=== PATIENT | female | born 1990 | race Caucasian/White ===

== ENCOUNTER 2025-06-11 09:50 | Outpatient (REF) | payer BC, SELFPAY ==
[2025-06-11 14:34] LABS: Hematocrit 37.3 % (37.0-47.0); Hemoglobin 11.9 g/dl (12.0-16.0); Mean Corpuscular HGB Conc 31.9 g/dl (31.0-35.0); Mean Corpuscular Hemoglobin 29.5 pg (27.0-33.0); Mean Corpuscular Volume 92.6 fL (80.0-98.0); NRBC Abs Auto 0.000 X10*3/uL (0.0-0.012); NRBC Pct Auto 0.0 /100WBC (0.0-0.2); Platelet Count 270 X10*3/uL (160-400); Red Blood Count 4.03 X10*6/uL (4.20-5.50); White Blood Count 5.5 X10*3/uL (4.8-10.8)
[2025-06-11 15:04] LABS: Alanine Aminotransferase 18 U/L (0-31); Albumin Level 4.7 g/dL (3.5-5.0); Alkaline Phosphatase 75 U/L (39-117); Anion Gap 11 (12-20); Aspartate Amino Transferase 23 U/L (5-31); Blood Urea Nitrogen 13 mg/dL (9-16); Calcium 9.2 mg/dL (8.4-10.2); Carbon Dioxide 26 mmol/L (22-29); Chloride 106 mmol/L (96-108); Cholesterol 144 mg/dL (<200); Estimated Glomerular Filt Rate > 60; HDL Cholesterol 56 mg/dL (>40); Potassium 4.1 mmol/L (3.3-5.1); Sodium 139 mmol/L (135-145); Total Protein 7.6 g/dL (6.5-8.0); Triglycerides 110 mg/dL (<150)
[2025-06-11 15:20] LABS: Folate 9.8 ng/mL (> or = 4.0); Vitamin B12 317 pg/mL (200-900)
== END 2025-06-11 09:51 | disposition home or self-care (01) ==
LOC: HO.WFDLDS 09:50
PROVIDERS: PCP Nurse Practitioner Family; Visit Provider Nurse Practitioner Family
DX: Z00.00 Encounter for general adult medical examination without abnormal findings (principal); Z76.89 Persons encountering health services in other specified circumstances; J45.20 Mild intermittent asthma, uncomplicated; F90.0 Attention-deficit hyperactivity disorder, predominantly inattentive type; Z88.7 Allergy status to serum and vaccine; E66.9 Obesity, unspecified; Z92.89 Personal history of other medical treatment; Z84.89 Family history of other specified conditions; Z87.892 Personal history of anaphylaxis
CPT/HCPCS: 36415; 80053; 80061; 82043; 82306; 82570; 82607; 82746; 83036; 84443; 85027; 96127; 96160

== ENCOUNTER 2025-06-11 09:50 | Outpatient (AMB) | payer BC, SELFPAY ==
--- NOTE | 2025-06-11 09:52 | A.OFFPC_ITS ---
Vital Signs 06/11/25 10:01 Height 5 ft 1 in Weight 195 lb 4 oz BMI 36.9 BP 118/73 Blood Pressure Location Lt brachial Position Sitting Respiration 13 Pulse 76 Pulse Source Pulse Oximeter Temp 97.5 F Temp Source Oral Pulse Oximetry (%) 99 Oxygen Delivery Method Room Air Intake Visit Reasons: CPE/med refill Intake Note: New patient to establish care and cpe. Patient is also requesting refill on meds. Cribber Required: No Allergies amoxicillin Allergy (Severe, Verified 06/11/25 10:13) Anaphylaxis Penicillins Allergy (Severe, Verified 06/11/25 10:13) Anaphylaxis covid vaccine Allergy (Severe, Uncoded 06/11/25 09:58) Anaphylaxis flu vaccine Adverse Reaction (Severe, Uncoded 06/11/25 09:58) Anaphylaxis Medication List - Last Reconciled 06/11/25 by FALLON ChaP- albuterol sulfate 90 mcg/actuation (Ventolin HFA) 2 puffs inhalation Q6H PRN bupropion HCl XL 150 mg PO DAILY dextroamphetamine-amphetamine 10 mg 1 tab PO DAILY dextroamphetamine-amphetamine 15 mg ER (Adderall XR) 1 cap PO QAM epinephrine (EpiPen) 0.3 mg IM Q15M PRN tretinoin 0.025% appl topical Tobacco use date assessed: 06/11/25 Dental Screening Dental Screen Date: 06/11/25 Did you have a dental visit in the last 12 months?: Yes Did you have a dental problem in the last 6 months where you did not have access to dental care?: No Was dental information given to patient?: Patient has dentist HPI HPI Comments History of Present Illness Details Kristen 34 y/o F with ADHD, obesity, MDD, fhx sk in ca, asthma, hx of anaphlaxis Surgery: wisdom teeth, inguinal cyst removal Social: moved to [place], works in [employer], Lives w/ partner. 1 dog. Fhx: MGM with skin ca, MGF CHF/MN; Dad 48 unknown hx. Mom alive w/ some health issues - estranged. Raised by Maternal grandparents. 4 1/2 siblings all alive. Health Maintenance Tdap 2023 Flu - contraindicated allergy Pap November 2023 Specialists: Lacey Ortiz [employer]CHO[employer]IAN History of Present Illness The patient is a 34-year-old female presenting to [facility] and for CPE No records - [facility] Attention Deficit Hyperactivity Disorder (ADHD): - Diagnosed condition managed with Adder all. - Prefers 15mg ER morning dose and 10mg for breakthrough symptoms. - Prescription issues due to backorder a nd pharmacy communication. Past Surgical History - [place] teeth extraction, December (year n ot specified). - In-office procedure for removal of cys ts on panty line in 2020 or 2021. Family History - Grandmother: Skin cancer (type unspeci fied). - Maternal grandfather: due to congestive heart failure following a heart attack in the . - Father: at age 48, possibly d ue to cardiac issues and possible drug use. Limited information on paternal family. Social History - Employment: Works in [employer]. - Housing: Lives with her partner. - Safety: Feels safe at home. - Pets: Has a dog. - Family: Grew up with grandparents, est ranged from mother. - Family planning: No immediate interest in mentioned. - Lifestyle: Experience with prescriptio n management and pharmacy issues. Health Maintenance - Allergic to flu vaccine. - Received tetanus shot last October. - Pap smear last year with ongoing SCHOOL LIBRARIAN v isiwilliam. - Discussed need for lab work for Lutonix. - Follow-up with dermatology for skin [facility]. Review of Systems - General: Denies recent physical exam. - Skin: History of cysts. - Respiratory: Uses albuterol for asthma . - Neurological: History of ADHD. - Allergies: Allergic reaction to flu va ccine. - Musculoskeletal: Denies back pain. - Genitourinary: Last Pap smear a year a go. - Gastrointestinal: Denies issues. - Immunologic: Reports last tetanus vacc ine. - Mental Health: No counseling. Physical Exam General: Well developed, well nourished, in no acute distress. Appears stated age. Head: Normocephalic, atraumatic. Eyes: Pupils are equal, round and reactive to light and accommodation. Conjunctivae are clear. Scleras nonicteric bilat. Vision grossly normal. Ears: TMs clear AU, EACS WNL Nose: Patent, without discharge. Neck: No carotid bruit bilat. Supple, no adenopathy or thyromegaly. Breast: Edu on SBE Lungs: Clear to auscultation bilaterally. No rales, rhonchi or wheeze noted. Good air flow in all alberts. Heart: Regular rate and rhythm. No murmurs, click, rubs or gallops are noted. Abdomen: Bowel sounds present in all quadrants. The abdomen is soft, nontender, with no masses or organomegaly noted. No hernias are noted. : Deferred. Reviewed recommendations for routine SCHOOL LIBRARIAN Pulses: Peripheral pulses are equal and palpable bilaterally. Extremities: No clubbing, cyanosis nor edema is noted. Neurologic: Gait and station normal. Cranial Nerves 2-12 intact. Motor strength grossly symmetrical and intact. No sensory loss. Balance normal. Skin: No rashes, ulcers, or lesions noted. Turgor is good. Skin color is good. Hair and nails are without abnormalities. Psych: Normal eye contact, affect and mood appropriate, and normal interactions. Patient is alert and appropriate to context. Results Pending Discussion Notes I discussed with the patient various management strategies for her ADHD, emphasizing the importance of staying on consistent medication and addressing the national backorder issues for her preferred medication, Adderall 15 mg extended-release. I informed her about using the [employer] portal for communication about prescriptions and any discrepancies with pharmacies, particularly [facility]. We discussed her asthma management with a limited need for albuterol inhaler, and her allergic reaction to the flu vaccine and past issues with Tdap. Plans were set for lab orders to establish baseline health analyses and to manage other health maintenance concerns. Patient was given time to ask questions. All questions were answered to their satisfaction. Assessment and Plan 1. Attention Deficit Hyperactivity Disor luz marina (ADHD) - Continue Adderall 15mg ER, 10mg IR lat er in day, monitor pharmacy issues. - Use [facility] for management. 2. Obesity - Perform baseline labs, discuss weight management. 3. Asthma - Maintain albuterol inhaler PRN. - Monitor triggers. 4. Allergic reaction to flu vaccine - Document and discuss alternatives. 5. Skin health - Dermatology follow-up annually 6. General health maintenance - Baseline labs, vitamin levels, regular screenings. Patient Instructions - Use [facility] portal for prescription is sues. - Take Adderall as prescribed. - Follow up with dermatology for skin ch ecks. - Obtain baseline labs as soon as yu hobbs. - - Return for follow-up care in 90 days for ADHD med check, will need to sign contract @ that time. Consent Consent for lab work, pharmacy communication, and use of [facility] was obtained explicitly from the patient. Details regarding medication management and refill policies were discussed to the patient's satisfaction ensuring understanding and agreement with the proposed care and follow-up procedures. No numerical risk assessments were discussed. Patient was informed and verbally consented to the use of an ambient scribe for clinic note documentation during this visit. An additional 30 minutes was spent addressing the problem(s) noted at todays visit. This includes time spent before the visit reviewing the chart, time spent during the visit, and time spent after the visit on documentation reviewing laboratory results, diagnostic imaging, medications, performing a medically necessary evaluation, counseling on diagnoses, care coordination, ordering appropriate tests, ordering appropriate medications, review of tests performed by other providers, reporting test results with the patient, communication with other healthcare providers. [facility] Social History (Updated 06/11/25 @ 10:02 by Quoc Dacosta MA) Household Members: Significant Other Both parents involved: No Caregiver staying overnight: No Housing: House Are you a primary rn medicare to a significant other at home: No Do you presently have visiting nurse or other home services: No 75 years or older and lives alone: No Alcohol intake: current Alcohol intake frequency: a few times a month Patient Tobacco Use Status: Never used Tobacco e-Cigarette/Vaping Use: Never Used Second Hand Smoke Exposure: No service: No Current occupational status: employed Current occupation: administrated [employer] Cognitive needs: No Hearing needs: No Vision needs: No Questionnaire PHQ-9 Over the last 2 weeks, how often have you been bothered by any of the following problems? 1. Little interest or pleasure in doing things: not at all 2. Feeling down, depressed, or hopeless: not at all 3. Trouble falling or staying asleep, or sleeping too much: not at all 4. Feeling tired or having little energy: several days 5. Poor appetite or overeating: not at all 6. Feeling bad about yourself - or that you are a failure or have let yourself or your family down: not at all 7. Trouble concentrating on things, such as reading the newspaper or watching television: not at all 8. Moving or speaking so slowly that other people could have noticed. Or the opposite - being so fidgety or restless that you have been moving around a lot more than usual: not at all 9. Thoughts that you would be better off or of hurting yourself in some way: not at all Total score: 1 Depression Screening Interpretation: Negative Depression Screening Done: Yes 10553 - PHQ-9 Billing: Yes Source: Developed by Drs. Edward Mckinney, Huong Irene, Elvis Mann and colleagues, with an educational susan from [employer]. Thrive Questionnaire Date Thrive assessed: 06/11/25 I am a: Patient What is your living situation today?: I have a steady place to live Within the past 12 months, did the food you bought not last and you didn't have the money to get more?: Never true Within the past 12 months, did you worry whether your food would run out before you got money to buy more?: Never true Do you have trouble paying for medicines?: No Do you have trouble getting transportation to medical appointments?: No Do you have trouble paying your heating and electricity bill?: No Do you have trouble taking care of your child, family member or friend?: No Do you have trouble with day-to-day activities such as bathing, preparing meals, shopping, managing finances, etc.?: No Are you currently unemployed and looking for a job?: No Are you interested in more education?: No Please select the resources that you would like help with: None Currently or been in a relationship where the following occur: I choose not to answer THRIVE Score: 0 AUDIT C Alcohol Use Questionnaire (AUDIT-C) 1. How often do you have a drink containing alcohol?: Monthly or less 2. How many drinks containing alcohol do you have on a typical day when you are drinking?: 1 or 2 3. How often do you have six or more drinks on one occasion?: Never Total Score: 1 Score Reviewed/Action Taken: Yes ENZO-7 AMB Questionnaire ENZO-7 Date ENZO - 7 assessed: 06/11/25 Feeling nervous, anxious, or on edge: 0 = Not at all Not being able to stop or control worryin = Not at all Worrying too much about different things: 1 = Several days Trouble relaxin = Several days Being so restless that it is hard to sit still: 0 = Not at all Becoming easily annoyed or irritable: 1 = Several days Feeling afraid as if something awful might happen: 0 = Not at all Total ENZO-7 score (0-4 normal; 5-9 mild; 10-14 moderate; 15-21 severe): 3 Source: Developed by Drs. Edward Mckinney, Huong Irene, Elvis Mann and colleagues, with an educational susan from [employer]. ENZO-7 Assessment Billing ENZO-7 Assessment Tool: ENZO-7 Assessment 94492 ACT Questionnaire In the past 4 weeks, how much of the time did your asthma keep you from getting as much done at work, school or at home?: None of the time During the past 4 weeks, how often have you had shortness of breath?: Not at all During the past 4 weeks, how often did your asthma symptoms wake you up at night or earlier than usual in the morning?: Not at all During the past 4 weeks, how often have you had to use your rescue inhaler or nebulizer medication?: Not at all How would you rate your asthma control during the past 4 weeks?: Completely controlled ACT Interpretation: Negative Score: 25 Physical exam (Primary Care) Vital Signs: Last Vital Signs Temp 97.5 F 06/11/25 10:01 Pulse 76 06/11/25 10:01 Resp 13 06/11/25 10:01 BP 118/73 06/11/25 10:01 Pulse Ox 99 06/11/25 10:01 Oxygen Delivery Method Room Air 06/11/25 10:01 BMI result Body Mass Index 36.9 BMI Assessment/Plan discussion: High BMI High, discussed plan: lifestyle Tobacco/Smoking Status: Tobacco use Status Tobacco use date assessed 06/11/25 06/11/25 09:59 Patient Tobacco Use Status Never used Tobacco 06/11/25 10:02 e-Cigarette/Vaping Use Never Used 06/11/25 10:02 PHQ-9: PHQ-9 Score PHQ-9: Total score 1 06/11/25 09:59 Depression Screening Interpretation: Negative Thrive Assessment: Date of Thrive Assessment Date Thrive assessed 06/11/25 06/11/25 09:59 Currently or been in a relationship where the following occur: I choose not to answer Coding Level of Care Code New Pt Level 3 (62814) New Pt Prev Care 18-39yr(47391 Diagnoses Encounter to establish care with new provider Z76.89 Attention deficit hyperactivity disorder (ADHD), predominantly inattentive type F90.0 Attention deficit-hyperactivity disorder type: predominantly inattentive Allergy to influenza vaccine Z88.7 Obesity (BMI 30-39.9) E66.9 History of Papanicolaou smear of cervix Z92.89 Patient's father is Z84.89 Laboratory exam ordered as part of routine general medical examination Z00.00 History of anaphylaxis Z87.892 Mild intermittent asthma without complication J45.20 Asthma complication type: uncomplicated Encounter for general adult medical examination without abnormal findings Z00.00 Additional Codes ENZO-7 Assessment Billing - ENZO-7 Assessment Tool: ENZO-7 Assessment 72555 ([id number]) PHQ-9 - 23457 - PHQ-9 Billing: Yes ([id number]) Asthma Control Questionnaire - ACT Interpretation: Negative ([id number]) Assessment & Plan Assessment & Plan (1) Encounter to establish care with new provider: Code(s): Z76.89 - Persons encountering health services in other specified circumstances (2) ADHD: Code(s): F90.9 - Attention-deficit hyperactivity disorder, unspecified type Category: Medical Qualifiers: Attention deficit-hyperactivity disorder type: predominantly inattentive Qualified Code(s): F90.0 - Attention-deficit hyperactivity disorder, predominantly inattentive type (3) Allergy to influenza vaccine: Code(s): Z88.7 - Allergy status to serum and vaccine Category: Medical (4) Obesity (BMI 30-39.9): Code(s): E66.9 - Obesity, unspecified Category: Medical (5) History of Papanicolaou smear of cervix: Onset Date: ~2023 Code(s): Z92.89 - Personal history of other medical treatment Category: Medical (6) Patient's father is : Code(s): Z84.89 - Family history of other specified conditions Category: Medical (7) Laboratory exam ordered as part of routine general medical examination: Code(s): Z00.00 - Encounter for general adult medical examination without abnormal findings Category: Medical (8) History of anaphylaxis: Code(s): Z87.892 - Personal history of anaphylaxis Category: Medical (9) Mild intermittent asthma: Code(s): J45.20 - Mild intermittent asthma, uncomplicated Category: Medical Qualifiers: Asthma complication type: uncomplicated Qualified Code(s): J45.20 - Mild intermittent asthma, uncomplicated (10) Encounter for general adult medical examination without abnormal findings: Onset Date: ~06/11/25 Code(s): Z00.00 - Encounter for general adult medical examination without abnormal findings Category: Medical Plan . Orders: Orders Comprehensive Met. Panel Today Z00.00 - Encounter for general adult medical examination without abnormal findings Lipid Panel Today Z00.00 - Encounter for general adult medical examination without abnormal findings Vitamin D 25-OH Total Today Z00.00 - Encounter for general adult medical examination without abnormal findings Complete Blood Count no Diff Today Z00.00 - Encounter for general adult medical examination without abnormal findings Hemoglobin A1c Today Z00.00 - Encounter for general adult medical examination without abnormal findings Microalbumin, Random (w Creat) Today Z00.00 - Encounter for general adult medical examination without abnormal findings TSH reflex Free T4 Today Z00.00 - Encounter for general adult medical examination without abnormal findings Vitamin B12 and Folate Today Z00.00 - Encounter for general adult medical examination without abnormal findings Medications: New albuterol sulfate 90 mcg/actuation (Ventolin HFA) 2 puffs inhalation Q6H PRN 6.7 grams 1RF shortness of breath or wheezing bupropion HCl XL 150 mg PO DAILY 90 tabs 2RF dextroamphetamine-amphetamine 10 mg 1 tab PO DAILY 90 tabs 0RF attention deficit hyperactivity disorder dextroamphetamine-amphetamine 15 mg ER (Adderall XR) 1 cap PO QAM 90 caps 0RF epinephrine (EpiPen) for 2 doses 0.3 mg (0.3 mL) IM Q15M PRN 2 ea 2RF anaphylaxis Patient Instructions: Walk-In Care (Urgent Care): We Make it Easy Walk-in for urgent medical issues such as: ? Seasonal Allergies ? Insect Bites ? Cough ? Diarrhea ? Acute Asthma Attacks ? Back, Knee or Joint Pain ? Ear Infection ? Fever without a Rash ? Headaches ? Nausea ? [place] Eye, Rash or Skin Irritation ? Sore Throat ? Sports Physicals ? Vomiting Most insurances are accepted. Patients do not need to be part of the [facility] to seek care at the walk-in clinic. Locations [address] [place] [address] Open Saturday through Saturday 8am-5pm *Hours may vary due to staffing availability. To confirm Walk-In Care hours please [place] [address] ? [phone] [facility] in [place] provides services to ages 18 and over. Open Saturday-Saturday: 7 a.m. to 5 p.m. and Saturday: 9 a.m. to 3 p.m.* *Hours may vary due to staffing availability. To confirm Walk-In Care hours in [place], please call [phone]. [address] [place] [address] ? [phone] [facility] in [place] provides services to ages 12 and over. Open Saturday-Saturday: 8 a.m. to 5 p.m. Hours may vary due to staffing availability. To confirm Walk-In Care hours in [place], please call [phone]. LABORATORY SERVICES: [facility] ? Primary Location [address] [place] [address] Saturday through Saturday 6:00 AM ? 5:00 PM Saturday 7:00 AM ? 11:00 AM* [phone] The [facility] Lab is centrally located near the front entrance of the [facility] for easy outpatient access. Convenient parking is provided for outpatients. *Hours may vary due to staffing availability. To confirm Laboratory hours for any location, please call [phone]. Offsite Location For your convenience, we offer offsite laboratory draw stations at the following locations: [address] [place] [address] ? [address], [address] Saturday through Saturday 7:30 AM ? 1:00 PM* [phone] *Hours may vary due to staffing availability. To confirm Laboratory hours for any location, please call [phone]. [place] ? [address] Saturday through Saturday 6:00 AM ? 3:30 PM* Saturday 6:30 AM ? 3 PM* [phone] *Hours may vary due to staffing availability. To confirm Laboratory hours for any location, please call [phone] [place] [address] Saturday through Saturday 7:30 AM ? 4:00 PM* [phone] *Hours may vary due to staffing availability. To confirm Laboratory hours for any location, please call [phone] [place] [address] Saturday through 9:00 AM ? 4:00 PM* *Hours may vary due to staffing availability. To confirm Laboratory hours for any location, please call [phone]. Appointments are not necessary. Walk-ins are welcome. Like all the departments throughout the [facility], our Lab undergoes frequent reviews to ensure the quality and accuracy of test results, and our staff takes special pride in its status as a nationally accredited facility. Patient Portal: [facility] ONE PATIENT. ONE RECORD. BETTER CARE. [facility] has a fully integrated, cutting- edge mobile electronic health information system that has revolutionized the way we care for our patients and manage our organization. This system improves communication and coordination enabling us to provide safe, higher-quality care, and an overall positive experience for staff and patients. Our first priority, as always, is to deliver the highest quality care possible. The system is running in the background supporting that priority. This portal is for all [facility] services and practices. If you are experiencing any technical difficulties with enrolling or logging into the Patient Portal please complete the [facility] Patient Portal Technical Support Form. [facility] now offers a new secure on-line interactive tool for patients to review their health information ? ?Patient Portal. This interactive web portal will enable patients and their families to take an active role in their care by providing easy, secure access to their health information via the internet. The Patient Portal provides patients with instant access to their health information, including laboratory results, medications, allergies, demographic information, visit history, and more. In addition to managing their own care, parents and health care proxies with authorized consent will appreciate the ability to access the records of those individuals for whom they provide care. Please note: if you wish to gain access (Proxy) to another patient?s portal, you will be required to come to the Medical Records Department in person at [facility]. Both the patient giving proxy access and the proxy will need to provide photo identification and complete the appropriate authorization. The Patient Portal also allows track their appointments online. The [facility] Patient Portal also saves patients time by allowing them to submit updates to their demographic and contact information prior to their visits. Portal email notifications will also alert patients to any new activity on their portal, such as test results and new appointments. In order to initially enroll in the [facility] Patient Portal, you will need to enter some required information including the following: * your [facility] Medical Record number * your personal home email address * name * date of Please note: In order to enroll in the [facility] Patient Portal, we need to have your email address on file in your electronic medical record. ?The email address needs to be specific for one person (yourself) in order for your Portal enrollment to be successful. ?You can update your email address in person with our Registration staff when you are registering for a hospital visit. ?Otherwise, you will need to come to the Health Information Management (Medical Records) Department at [facility]. ?We are open from Saturday ? Saturday from 7:30 a.m. ? 4:30 p.m. ?You will be required to present a photo id. Once you have successfully enrolled in the Patient Portal, you will receive a one-time user id and password for the Portal, sent to your email address. ?This will allow you to log into the Patient Portal within 99 hrs and reset your own logon id and password, and define personal security questions. ?Once your permanent login and password have been set, you can log into the [facility] Patient Portal at any time via the blue button above or from the Portal Logon button on any page of the [facility] website. [facility] and [facility] encourage all of our patients to enroll in Patient Portal as it presents a valuable opportunity for patients and their families to actively participate in their care and stay healthy Welcome to [facility]. ?We look forward to working with you. Health screenings for women You should visit your health care provider from time to time, even if you are healthy. The purpose of these visits is to: Screen for medical issues Assess your risk for future medical problems Encourage a healthy lifestyle Update vaccinations and other preventive care services Help you get to know your provider in case of an illness Information Even if you feel fine, you should still see your provider for regular checkups. These visits can help you avoid problems in the future. For example, the only way to find out if you have high blood pressure is to have it checked regularly. High blood sugar and high cholesterol levels also may not have any symptoms in the early stages. A simple blood test can check for these conditions. There are specific times when you should see your provider or receive specific health screenings. The [place] Preventive Services Task Force publishes a list of recommended screenings. Below are screening guidelines for women ages 18 to 39. BLOOD PRESSURE SCREENING Your blood pressure should be checked at least once every 3 to 5 years if: Your blood pressure is in the normal range (top number less than 120 mm Hg and bottom number less than 80 mm Hg) You don't have risk factors for high blood pressure Ask your provider if you need your blood pressure checked more often if: The top number is 120 to 129 mm Hg or the bottom number is 70 to 79 mm Hg You have diabetes, heart disease, kidney problems, are overweight, or have certain other health conditions You have a first-degree relative with high blood pressure You are Black You had high blood pressure during a If the top number is 130 mm Hg or greater or the bottom number is 80 mm Hg or greater, this is considered stage 1 hypertension. Schedule an appointment with your provider to learn how you can reduce your blood pressure. Watch for blood pressure screenings in your area. Ask your provider if you can stop in to have your blood pressure checked. BREAST CANCER SCREENING Experts do not agree about the benefits of breast self-exams in finding breast cancer or saving lives. Talk to your provider about what is best for you. A screening mammogram is not recommended for most women under age 40. Your provider may discuss and recommend mammograms, MRI scans, or ultrasounds if you have an increased risk for breast cancer, such as: A mother or sister who had breast cancer at a young age (most often starting screening earlier than the age the close relative was diagnosed) You carry a high-risk genetic marker CERVICAL CANCER SCREENING Cervical cancer screening should start at age 21 years unless your provider advises otherwise. After the first test: Women ages 21 through 29 should have a Pap test every 3 years. Exoprts do not agree on whether HPV testing is recommended for this age group. Women ages 30 through 65 should be screened with either a Pap test every 3 years or the HPV test every 5 years or both tests every 5 years (called cotesting ). Women who have been treated for precancer (cervical dysplasia) should continue to have Pap tests for 20 years after treatment or until age 65, whichever is longer. If you have had your uterus and cervix removed (total hysterectomy), and you have not been diagnosed with cervical cancer or precancer (high grade cervical neoplasia), you do not need cervical cancer screening. CHOLESTEROL SCREENING Cholesterol screening should begin at: Age 45 for women with no known risk factors for coronary heart disease Age 20 for women with known risk factors for coronary heart disease Repeat cholesterol screening should take place: Every 5 years for women with normal cholesterol levels More often if changes occur in lifestyle (including weight gain and diet) More often if you have diabetes, heart disease, kidney problems, or certain other conditions DIABETES SCREENING You should be screened for diabetes starting at age 35 and then repeated every 3 years if you have no risk factors for diabetes. Screening may need to start earlier and be repeated more often if you have other risk factors for diabetes, such as: You have a first degree relative with diabetes. You are overweight or have obesity. You have high blood pressure, prediabetes, or a history of heart disease. Screening for diabetes should be done if you are planning to become and you are overweight and have other risk factors such as high blood pressure. DENTAL EXAM Go to the dentist once or twice every year for an exam and cleaning. Your dentist will evaluate if you need more frequent visits. EYE EXAM Have an eye exam every 5 to 10 years before age 40. If you have vision problems, have an eye exam every 2 years or more often if recommended by your provider. You should have an eye exam that includes an examination of your retina (back of your eye) at least every year if you have diabetes. IMMUNIZATIONS Commonly needed vaccines include: Flu shot: get one every year. COVID-19 vaccine: ask your provider what is best for you. Tetanus-diphtheria and acellular pertussis (Tdap) vaccine: have one at or after age 19 as one of your tetanus-diphtheria vaccines if you did not receive it as an adolescent. Tetanus-diphtheria: have a booster (or Tdap) every 10 years. Varicella vaccine: receive 2 doses if you never had chickenpox or the varicella vaccine. Hepatitis B vaccine: receive 2, 3, or 4 doses, depending on your exact circumstances. Measles, mumps, and rubella (MMR) vaccine: receive 1 to 2 doses if you are not already immune to MMR. Your provider can tell you if you are immune. Ask your provider about the human papillomavirus (HPV) vaccine if: You have not received the HPV vaccine in the past You have not completed the full vaccine series (you should catch up on this shot) Ask your provider if you should receive other immunizations if you have certain health problems that increase your risk for some diseases such as pneumonia. INFECTIOUS DISEASE SCREENING Women who are sexually active should be screened for chlamydia and gonorrhea up until age 25. Women 25 years and older should be screened for chlamydia and gonorrhea if at high risk. Screening for hepatitis C: All adults ages 18 to 79 should get a one-time test for hepatitis C. people should be screened at every . Screening for human immunodeficiency virus (HIV): All people ages 15 to 65 should get a one-time test for HIV. Depending on your lifestyle and medical history, you may also need to be screened for infections such as syphilis and HIV, as well as other infections. PHYSICAL EXAM All adults should visit their provider from time to time, even if they are healthy. The purpose of these visits is to: Screen for disease Assess your risk of future medical problems Encourage a healthy lifestyle Update your vaccinations and other preventive care services Maintain a relationship with a provider in case of an illness Your height, weight, and BMI should be checked at every exam. During your exam, your provider may ask you about: Depression and anxiety Diet and exercise Alcohol and tobacco use Safety issues, such as using seat belts, smoke detectors, and intimate partner violence Your medicines and risk for interactions SKIN SELF-EXAM Your provider may check your skin for signs of skin cancer, especially if you're at high risk, such as if you: Have had skin cancer before Have close relatives with skin cancer Have a weakened immune system OTHER SCREENING Talk with your provider about colon cancer screening if you have a strong family history of colon cancer or polyps, or if you have had inflammatory bowel disease or polyps yourself. Routine bone density screening of women under 40 is not recommended.
[2025-06-11 10:01] VITALS: BP 118/73; PULSE 76; RESP 13; TEMP 36.4; O2SAT 99; BMI 36.9
--- OUTSIDE RECORDS SUMMARY | 2025-06-11 10:54 | XMS_ITS ---
Author Name [facility] Organization Unknown Encounters Encounter Type Encounter Reason Primary Diagnosis Location Date Ambulatory [facility]. ([facility]) 08/09/2024
== END 2025-06-11 10:37 | disposition home or self-care (01) ==
LOC: HO.HMCFM 09:50
PROVIDERS: PCP Nurse Practitioner Family; Visit Provider Nurse Practitioner Family
DX: Z00.00 Encounter for general adult medical examination without abnormal findings (principal); F90.0 Attention-deficit hyperactivity disorder, predominantly inattentive type; E66.9 Obesity, unspecified; Z68.36 Body mass index [BMI] 36.0-36.9, adult; Z88.7 Allergy status to serum and vaccine; J45.20 Mild intermittent asthma, uncomplicated; Z92.89 Personal history of other medical treatment; Z84.89 Family history of other specified conditions; Z87.892 Personal history of anaphylaxis

== ENCOUNTER 2025-09-13 08:24 | Outpatient (AMB) | payer BC, SELFPAY ==
--- NOTE | 2025-09-13 08:29 | A.OFFPC_ITS ---
Vital Signs 09/13/25 08:32 Height 5 ft 1 in Weight 200 lb BMI 37.8 BP 112/68 Blood Pressure Location Rt brachial Position Sitting Respiration 12 Pulse 93 Pulse Source Pulse Oximeter Temp 97.1 F Temp Source Oral Pulse Oximetry (%) 98 Oxygen Delivery Method Room Air Intake Visit Reasons: 3 mo ADHD med check Intake Note: Follow up on adhd med. Internet Consultant Required: No Allergies amoxicillin Allergy (Severe, Verified 09/13/25 08:48) Anaphylaxis Penicillins Allergy (Severe, Verified 09/13/25 08:48) Anaphylaxis covid vaccine Allergy (Severe, Uncoded 09/13/25 08:30) Anaphylaxis flu vaccine Adverse Reaction (Severe, Uncoded 09/13/25 08:30) Anaphylaxis Medication List - Last Reconciled 09/13/25 by DIONTE Cha- albuterol sulfate 90 mcg/actuation (Ventolin HFA) 2 puffs inhalation Q6H PRN bupropion HCl XL 150 mg PO DAILY dextroamphetamine-amphetamine 10 mg 1 tab PO DAILY dextroamphetamine-amphetamine 15 mg ER (Adderall XR) 1 cap PO QAM epinephrine (EpiPen) 0.3 mg (0.3 mL) IM Q15M PRN tretinoin 0.025% appl topical Tobacco use date assessed: 09/13/25 Dental Screening Dental Screen Date: 09/13/25 Did you have a dental visit in the last 12 months?: Yes Did you have a dental problem in the last 6 months where you did not have access to dental care?: No Was dental information given to patient?: Patient has dentist HPI HPI Comments History of Present Illness Details Kristen 34 y/o F with ADHD, obesity, MDD, fhx sk in [place], asthma, hx of anaphlaxis Surgery: wisdom teeth, inguinal cyst removal Social: moved to [place], works in [employer], Lives w/ partner. 1 dog. Fhx: MGM with skin ca, MGF CHF/SD; Dad 48 unknown hx. Mom alive w/ some health issues - estranged. Raised by Maternal grandparents. 4 1/2 siblings all alive. Health Maintenance Tdap 2023 Flu - contraindicated allergy Pap November 2023 Specialists: Lacey Diazide ACCOUNTING MANAGER ASSISTANT CONTROLLER History of Present Illness The patient is a 34-year-old female presenting for a routine ADHD follow-up. Attention-Deficit/Hyperactivity Disorder: - The patient is on a stable medication regimen for ADHD, which includes Bupropion XL 150 mg daily, Adderall ER 15 mg daily, and Adderall IR 10 mg daily for breakthrough symptoms in the afternoon. - She is due for refills on her medicati ons. - The patient has been on bupropion [facility] e 2020 or 2021, initially starting at 1 00 mg twice a day before switching to the current 150 mg once-daily formulation. Patient is aware they are being prescribed a controlled substance. They were educated that this medication does require routine monthly office visits to monitor weight, blood pressure, heart rate and to screen for any signs of abuse or misuse. They were educated that they may be subject to random pill counts and/or U tox screenings. The prescription drug monitoring program we will be monitored at each visit to further screen for signs of abuse or misuse to include filling prescriptions at other physician's offices. The patient should maintain prescription refills of the same local pharmacy and advised the provider of any changes immediately. If at any time there is a concern for abuse or misuse or if there are any signs of side effects such as elevated blood pressure, elevated heart rate or weight loss patient is made aware that this medication will be discontinued. The patient is aware of the above and is willing to proceed. Weight Gain: - The patient reports new concerns of we ight gain and increased hunger. - She inquired about GLP-1 agonists for weight management, believing her A1c was in the prediabetic range. - A review of her lab work from 06/11/25 confirmed her A1c was 5.5, which is not in the prediabetic range. Review of Systems - Constitutional: Reports recent weight gain and increased appetite. - Psychiatric: Reports stable ADHD sympt oms. Denies any other new or changed symptoms. Physical Exam General: Well developed, well nourished, in no acute distress. Appears stated age. Head: Normocephalic, atraumatic. Eyes: Pupils are equal, round and reactive to light and accommodation. Conjunctivae are clear. Vision grossly normal. Lungs: Clear to auscultation bilaterally. No rales, rhonchi or wheeze noted. Good air flow in all alberts. Heart: Regular rate and rhythm. No murmurs, click, rubs or gallops are noted. Psych: Mood and affect appropriate. Results - Labs: HbA1c on 06/11/2025 was 5.5. Medical Decision Making The patient is a 34-year-old female here for a routine ADHD follow-up. Her ADHD is stable on her current regimen of Bupropion XL 150mg, Adderall ER 15mg, and Adderall IR 10mg PRN, and she is due for refills. An annual controlled substance agreement was reviewed and signed to ensure safe prescribing practices. The patient reported recent weight gain and increased appetite, and she inquired about initiating a GLP-1 agonist, mistakenly believing her A1c was in the prediabetic range. I reviewed her lab results from 06/11/25, which showed a normal A1c of 5.5, and reassured her she does not have prediabetes. We had an extensive discussion regarding weight management options, including the significant risks and lack of long-term data associated with GLP-1 agonists, such as weight regain after cessation and potential for cancer. I explained that insurance requires a formal evaluation by a weight management program for these medications. The patient agreed to a referral to our medical weight management program for a comprehensive consultation to explore all options, including non-GLP-1 medications and lifestyle changes. Plan 1. Attention-Deficit/Hyperactivity Disor luz marina - Continue current medication regimen of Bupropion XL 150 mg daily, Adderall ER 15 mg daily, and Adderall IR 10 mg as-needed for breakthrough symptoms. - Sent 90-day electronic prescriptions f or Adderall ER 15 mg and Adderall IR 10 mg. - An ADHD controlled substance contract was reviewed and signed by the patient. - The patient was instructed to use the patient portal to request future refills, allowing at least seven business days for processing, even if her next appointment is scheduled beyond the 90-day supply. - Follow up in 3 months for a routine AD HD check-in. 2. Unintentional Weight Gain - The patient reports new onset weight g ain and increased appetite. - The patient's A1c of 5.5 from 06/11/25 was reviewed, and she was reassured that she is not prediabetic. - An extensive discussion was held regar ding the risks (weight regain, potential for cancer, side effects) and benefits of GLP-1 agonists, contrasting them with bupropion. - Placed a referral to the medical weigh t management program for consultation on pharmacologic and lifestyle options. The patient was advised to clarify she is interested in medical management, not bariatric surgery. Patient Instructions - Continue taking your medications as pr escribed: Bupropion XL 150 mg daily, Adderall ER 15 mg daily, and Adderall 10 mg as needed in the afternoon. - I have sent new prescriptions for your Adderall medications to your preferred pharmacy. - For future refills, please send a requ est through the patient portal at least 7 business days before you run out of medication. - You will receive a phone call from our medical weight management program in about two weeks to schedule a consultation. Please let them know you are not interested in surgery at this time. - Schedule your next follow-up appointme nt in three months for a routine ADHD check-in. - Remember that we may ask for random pi ll counts, so it is a good habit to bring your medication bottles to your appointments. Consent Verbal consent was obtained for continuing controlled substance therapy for ADHD. A detailed discussion was held regarding the ADHD medication agreement, which the patient read and signed. The agreement outlines the risks and side effects of the medications, the requirement to use a single pharmacy, and the possibility of random pill counts and drug tests. The patient acknowledged understanding that misuse or non-compliance could result in the termination of the agreement. The signed contract has been scanned into the patient's chart. Patient was informed and verbally consented to the use of an ambient scribe for clinic note documentation during this visit. Total time spent caring for the patient today was 30 minutes. This includes time spent before the visit reviewing the chart, time spent during the visit, and time spent after the visit on documentation, reviewing laboratory results, diagnostic imaging, medications, performing a medically necessary evaluation, counseling on diagnoses, care coordination, ordering appropriate tests, ordering appropriate medications, review of tests performed by other providers, reporting test results with the patient, communication with other healthcare providers. [facility] Medical History (Updated 09/13/25 @ 09:13 by [facility]) Hx of mammogram (~2019) Surgical History (Updated 06/11/25 @ 11:09 by Quoc Dacosta MA) Upper Tract teeth removed Family History (Updated 06/11/25 @ 11:11 by Quoc Dacosta MA) Mother Asthma Sister Asthma Brother Asthma Maternal Grandfather Cardiovascular disease Social History (Updated 06/11/25 @ 11:11 by Quoc Dacosta MA) Household Members: Significant Other Both parents involved: No Caregiver staying overnight: No Housing: House Are you a primary care manager cna to a significant other at home: No Do you presently have visiting nurse or other home services: No 75 years or older and lives alone: No Alcohol intake: current Alcohol intake frequency: a few times a month Patient Tobacco Use Status: Never used Tobacco e-Cigarette/Vaping Use: Never Used Second Hand Smoke Exposure: No service: No Current occupational status: employed Current occupation: administrated [employer] Cognitive needs: No Hearing needs: No Vision needs: No Questionnaire PHQ-9 Over the last 2 weeks, how often have you been bothered by any of the following problems? 1. Little interest or pleasure in doing things: not at all 2. Feeling down, depressed, or hopeless: not at all 3. Trouble falling or staying asleep, or sleeping too much: not at all 4. Feeling tired or having little energy: not at all 5. Poor appetite or overeating: not at all 6. Feeling bad about yourself - or that you are a failure or have let yourself or your family down: not at all 7. Trouble concentrating on things, such as reading the newspaper or watching television: not at all 8. Moving or speaking so slowly that other people could have noticed. Or the opposite - being so fidgety or restless that you have been moving around a lot more than usual: not at all 9. Thoughts that you would be better off or of hurting yourself in some way: not at all Total score: 0 Depression Screening Interpretation: Negative Depression Screening Done: Yes 40876 - PHQ-9 Billing: Yes Source: Developed by Drs. Edward Mckinney, Huong Irene, Elvis Mann and colleagues, with an educational susan from [employer]. Thrive Questionnaire Date Thrive assessed: 09/13/25 I am a: Patient What is your living situation today?: I have a steady place to live Within the past 12 months, did the food you bought not last and you didn't have the money to get more?: Never true Within the past 12 months, did you worry whether your food would run out before you got money to buy more?: Never true Do you have trouble paying for medicines?: No Do you have trouble getting transportation to medical appointments?: No Do you have trouble paying your heating and electricity bill?: No Do you have trouble taking care of your child, family member or friend?: No Do you have trouble with day-to-day activities such as bathing, preparing meals, shopping, managing finances, etc.?: No Are you currently unemployed and looking for a job?: No Are you interested in more education?: No Currently or been in a relationship where the following occur: I choose not to answer THRIVE Score: 0 AUDIT C Alcohol Use Questionnaire (AUDIT-C) 1. How often do you have a drink containing alcohol?: Never 3. How often do you have six or more drinks on one occasion?: Never Total Score: 0 ENZO-7 AMB Questionnaire ENZO-7 Date ENZO - 7 assessed: 09/13/25 Feeling nervous, anxious, or on edge: 0 = Not at all Not being able to stop or control worryin = Not at all Worrying too much about different things: 0 = Not at all Trouble relaxin = Not at all Being so restless that it is hard to sit still: 0 = Not at all Becoming easily annoyed or irritable: 0 = Not at all Feeling afraid as if something awful might happen: 0 = Not at all Total ENZO-7 score (0-4 normal; 5-9 mild; 10-14 moderate; 15-21 severe): 0 Source: Developed by Drs. Edward Mckinney, Huong Irene, Elvis Mann and colleagues, with an educational susan from [employer]. ENZO-7 Assessment Billing ENZO-7 Assessment Tool: ENZO-7 Assessment 27123 Physical exam (Primary Care) Vital Signs: Last Vital Signs Temp 97.1 F 09/13/25 08:32 Pulse 93 09/13/25 08:32 Resp 12 09/13/25 08:32 BP 112/68 09/13/25 08:32 Pulse Ox 98 09/13/25 08:32 Oxygen Delivery Method Room Air 09/13/25 08:32 BMI result Body Mass Index 37.8 Tobacco/Smoking Status: Tobacco use Status Tobacco use date assessed 09/13/25 09/13/25 08:34 Patient Tobacco Use Status Never used Tobacco 09/13/25 08:34 e-Cigarette/Vaping Use Never Used 09/13/25 08:34 PHQ-9: PHQ-9 Score PHQ-9: Total score 0 09/13/25 08:34 Depression Screening Interpretation: Negative Thrive Assessment: Date of Thrive Assessment Date Thrive assessed 09/13/25 09/13/25 08:34 Currently or been in a relationship where the following occur: I choose not to answer Coding Level of Care Code Est Pt Level 4 (91168) Add On Problem Visit Only Diagnoses Attention deficit hyperactivity disorder (ADHD), predominantly inattentive type F90.0 Attention deficit-hyperactivity disorder type: predominantly inattentive Obesity (BMI 30-39.9) E66.9 Medication management contract signed Z02.89 Additional Codes ENZO-7 Assessment Billing - ENZO-7 Assessment Tool: ENZO-7 Assessment 43553 ([id number]) PHQ-9 - 68652 - PHQ-9 Billing: Yes ([id number]) Assessment & Plan Assessment & Plan (1) ADHD: Comment: contract signed 09/13/25 Random pill count: UTox: Code(s): F90.9 - Attention-deficit hyperactivity disorder, unspecified type Category: Medical Qualifiers: Attention deficit-hyperactivity disorder type: predominantly inattentive Qualified Code(s): F90.0 - Attention-deficit hyperactivity disorder, predominantly inattentive type (2) Obesity (BMI 30-39.9): Code(s): E66.9 - Obesity, unspecified Category: Medical (3) Medication management contract signed: Onset Date: ~09/13/25 Code(s): Z02.89 - Encounter for other administrative examinations Category: Medical Plan . Orders: Referrals Medical Weight Management Referral E66.9 - Obesity, unspecified Medications: Refilled dextroamphetamine-amphetamine 10 mg 1 tab PO DAILY 90 tabs 0RF attention deficit hyperactivity disorder dextroamphetamine-amphetamine 15 mg ER (Adderall XR) 1 cap PO QAM 90 caps 0RF
[2025-09-13 08:32] VITALS: BP 112/68; PULSE 93; RESP 12; TEMP 36.2; O2SAT 98; BMI 37.8
== END 2025-09-13 09:07 | disposition home or self-care (01) ==
LOC: HO.HMCFM 08:25
PROVIDERS: PCP Nurse Practitioner Family; Visit Provider Nurse Practitioner Family
DX: F90.0 Attention-deficit hyperactivity disorder, predominantly inattentive type (principal); E66.9 Obesity, unspecified; Z02.89 Encounter for other administrative examinations

== ENCOUNTER → 2025-09-13 08:24 | Outpatient (BNVA) | payer BC, SELFPAY | PROVIDERS: PCP Nurse Practitioner Family; Visit Provider Nurse Practitioner Family | DX: F90.0 Attention-deficit hyperactivity disorder, predominantly inattentive type (principal); Z02.89 Encounter for other administrative examinations; E66.9 Obesity, unspecified; Z68.37 Body mass index [BMI] 37.0-37.9, adult | CPT/HCPCS: 96127 ==